=== PATIENT | female | born 1975 | race African-American/Black ===

== ENCOUNTER 2016-10-10 13:27 | Emergency (ER) | payer SELFPAY ==
[~2016-10-10] VITALS: Ht 162.6 cm; Wt 86.0 kg
[~2016-10-10 13:27] MED LIST: LORA1TAB PO
[2016-10-10 13:45] VITALS: BP_SYST 172; BP_SYST 177; BP_DIAS 100; BP_DIAS 110; PULSE 108; RESP 20; RESP 22
--- NOTE | 2016-10-10 13:54 | PD ---
HPI Chief Complaint: Anxiety Time Seen by Provider: 13:54 Travel History International Travel<30 days: No Contact w/Intl Traveler<30days: No Traveled to known affect area: No History of Present Illness HPI 41-year-old female presents to the emergency department for evaluation of anxiety. Patient does state that she has a history of anxiety and her anxiety has become worse recently. She states she has had a lot more stress in life. Patient states that she had a panic attack around 7 AM. She states that she had shortness of breath, chest tightness and felt shaky. She states that she still has some chest tightness and feels shaky. She states these are her typical anxiety symptoms. Patient states that she used to be on Xanax for anxiety, but has been out of it recently. Patient was seen in August 2015 for similar issues. Patient denies any cardiac history. She states that she is previously on Xanax and she takes for her tension headaches. Patient denies any other complaints at this time. PFSH Past Medical History Anxiety: Yes Immunizations Current: Yes ?: Not LMP: 08/2016 : 4 Para: 3 Miscarriage: 1 Dilation and Curettage (D&C): Yes Tubal Ligation: Yes Past Surgical History Section: Yes (X 2) Social History Alcohol Use: Yes (2 DRINKS NIGHTLY) Tobacco Use: Yes (1 PPD) Substance Use: No Allergies-Medications (Allergen,Severity, Reaction): Coded Allergies: No Known Allergies (Verified , 10/10/16) Reported Meds & Prescriptions Reported Meds & Active Scripts Active Reported Lorazepam 1 Mg Tab 1 Mg PO Q6H PRN Review of Systems Except as stated in HPI: all other systems reviewed are Neg Physical Exam Narrative GENERAL: Well-developed well-nourished female patient, ambulatory. Afebrile. Patient does appear anxious on exam. SKIN: Warm and dry. HEAD: Normocephalic. Atraumatic. EYES: No scleral icterus. No injection or drainage. NECK: Supple, trachea midline. No JVD or lymphadenopathy. CARDIOVASCULAR: Regular rate and rhythm without murmurs, gallops, or rubs. RESPIRATORY: Breath sounds equal bilaterally. No accessory muscle use. Lungs sounds are clear to auscultation. GASTROINTESTINAL: Abdomen soft, non-tender, nondistended. MUSCULOSKELETAL: No cyanosis, or edema. BACK: Nontender without obvious deformity. No CVA tenderness. Data Data Last Documented VS Vital Signs Date Time Temp Pulse Resp B/P Pulse Ox O2 Delivery O2 Flow Rate FiO2 10/10/16 14:40 101 10/10/16 14:39 146/100 10/10/16 13:58 98.9 20 98 Room Air Orders Alprazolam (Xanax) (10/10/16 14:00) Electrocardiogram (10/10/16 ) MDM Medical Decision Making Medical Screen Exam Complete: Yes Emergency Medical Condition: Yes Medical Record Reviewed: Yes Differential Diagnosis anxiety versus panic attack versus unlikely ACS Narrative Course 41-year-old female presents to the emergency department complaining of anxiety and panic attacks since 7 AM this morning. She does report a history of anxiety with similar symptoms. I discussed the case with my attending physician , Dr. Juarez who is in agreement with plan. Patient is given Xanax 0.5 mg by mouth. EKG is ordered and pending. EKG shows sinus tachycardia, heart rate [address] changes. This was read by my attending physician, Dr. Juarez. Upon reevaluation, patient states she does feel better. She does wish to go home. Patient will be discharged with a short-term prescription for Vistaril. She is encouraged to follow-up with her primary care physician. She is return for any acute worsening of symptoms. Diagnosis Primary Impression: Anxiety Referrals: Primary Care Physician call for appointment Patient Instructions: Anxiety (ED), General Instructions Additional Instructions: Take Vistaril as instructed as needed for anxiety. Follow-up with your primary care physician. Return to the emergency department for any acute worsening of symptoms. Med/Other Pt SpecificInfo: Prescription(s) given Scripts Hydroxyzine Pamoate (Vistaril)50 Mg Cap50 Mg PO TID PRN (ANXIETY AND/OR INSOMNIA ) #21 CAP Ref 0 Prov:Deirdre Hayden 10/10/16 Disposition: 01 DISCHARGE HOME Condition: Stable Deirdre Hayden Oct 10, 2016 13:54
[2016-10-10 13:58] VITALS: BP 162/107; PULSE 116; RESP 20; TEMP 98.9; O2SAT 98
[2016-10-10] MEDS ORDERED: ALPRAZolam 0.5 MG TAB PO ONE (14:00)
[2016-10-10 14:39] VITALS: BP 146/100; PULSE 101
[2016-10-10] MEDS ORDERED: VIST50CA PO (14:56)
--- NOTE | 2016-10-11 15:28 | EKG ---
Date Performed: 10/10/2016 Time Performed: 14:03:30 PTAGE: 41 years EKG: SINUS TACHYCARDIA Possible septal injury, age undetermined Largely unchanged from the prior tracing ABNORMAL RHYTHM ECG NO PREVIOUS TRACING DOCTOR: Sacha Wade Interpretating Date/Time 10/11/2016 15:26:32
== END 2016-10-10 15:36 | disposition home or self-care (01) ==
LOC: NEPB 13:27
DX: F41.9 Anxiety disorder, unspecified (principal); R00.0 Tachycardia, unspecified
CPT/HCPCS: 93005